=== PATIENT | male | born 1990 | race Caucasian/White ===

== ENCOUNTER 2023-11-09 20:22 | Emergency (ER) | payer OTHER ==
[~2023-11-09] VITALS: Ht 190.5 cm; Wt 81.8 kg
[2023-11-09 20:31] VITALS: TEMP 97.9
[2023-11-09] MEDS ORDERED: SODIUM CHLORIDE 0.9% 1,000 ML ONE (20:38)
[2023-11-09] MEDS ORDERED: CeFAZolin 1 GM/DEXTROSE 100 ML IV ONE (20:38)
[2023-11-09] MEDS: CeFAZolin 1 GM/DEXTROSE 50 ML IV ONE ×2 (20:59)
[2023-11-09] MEDS: CeFAZolin SODIUM 1 GM VIAL IM ONE (20:59)
[2023-11-09] MEDS: ONDANSETRON HCL 4 MG/2 ML VIAL IVP ONE (21:02)
[2023-11-09] MEDS: MORPHINE SULFATE 4 MG/ML SYRINGE IVP ONE (21:02)
[2023-11-09] MEDS ORDERED: IOHEXOL 350 MG/ML 100 ML VIAL ONE (21:24)
[2023-11-09] MEDS ORDERED: SODIUM CHLORIDE 0.9% 100 ML ONE (21:24)
[2023-11-09 21:50] LABS: BASOPHILS % (AUTO) 0.4 % (0.0-2.0); EOSINOPHILS % (AUTO) 0.9 % (1.0-6.0); HEMATOCRIT 43.3 % (41-53); HEMOGLOBIN 14.6 g/dL (13.5-17.5); LYMPHOCYTES # (AUTO) 1.9 K/uL (1.0-4.8); LYMPHOCYTES % (AUTO) 25.5 % (22.0-44.0); MEAN CORPUSCULAR HGB CONC 33.7 G/dL (31.0-37.0); MEAN CORPUSCULAR VOLUME 95 fL (80-100); MONOCYTES # (AUTO) 0.5 K/uL (0.1-1.0); NEUTROPHILS # (AUTO) 4.9 K/uL (1.8-7.7); NEUTROPHILS % (AUTO) 66.2 % (40.0-70.0); PLATELET COUNT (AUTO) 329 K/uL (150-450); RED BLOOD CELL COUNT(AUTO) 4.57 MIL/uL (4.50-5.90); RED CELL DISTRIBUTION WIDTH 13.7 % (11.5-14.5); WHITE BLOOD COUNT (AUTO) 7.4 K/uL (4.5-11.0)
[2023-11-09 21:56] LABS: ANION GAP 11 mmol/L (8-16); CALCIUM, TOTAL 8.4 mg/dL (8.8-10.5); CARBON DIOXIDE 28 mmol/L (22-29); CHLORIDE 102 mmol/L (98-107); CREATININE 0.99 mg/dL (0.60-1.30); GLOMERULAR FILTR. RATE CALC > 60 mL/min (>60); GLUCOSE,RANDOM 87 mg/dL (70-110); POTASSIUM 3.5 mmol/L (3.5-5.1); SODIUM SERUM 141 mmol/L (136-145); UREA NITROGEN, BLOOD 11 mg/dL (7-18)
[2023-11-09 22:00] LABS: PROTHROMBIN TIME 10.5 SEC (9.4-11.6)
[2023-11-09 22:02] LABS: ALANINE AMINOTRANSFERASE 34 U/L (12-78); ALBUMIN 3.4 g/dL (3.4-5.0); ALKALINE PHOSPHATASE 71 U/L (46-116); ASPARTATE AMINOTRANSFERASE 35 U/L (15-37); BILIRUBIN,TOTAL 0.4 mg/dL (0.1-1.0); TOTAL PROTEIN, SERUM 7.3 g/dL (6.4-8.2)
[2023-11-09 22:03] LABS: ALCOHOL, BLOOD (SERUM) 177 mg/dL (0-10)
[2023-11-09 23:05] VITALS: BP 134/76; PULSE 77; RESP 16
[2023-11-09] MEDS: SODIUM CHLORIDE 0.9% 250 ML IRRIG SOLUTION BOTTLE IRRIG ONE (23:30)
[2023-11-09] MEDS ORDERED: CEPH-558 PO (23:57)
[2023-11-09] MEDS ORDERED: HYDR-4723 PO (23:57)
[2023-11-10] MEDS: HYDROCODONE/ACETAMINOPHEN 5-325 MG TABLET PO ONE (00:20)
== END 2023-11-10 01:38 | disposition home or self-care (01) ==
LOC: EMS 20:22
DX: S81.831A Puncture wound without foreign body, right lower leg, initial encounter (principal); Z91.040 Latex allergy status; W34.09XA Accidental discharge from other specified firearms, initial encounter; Y93.89 Activity, other specified; Y92.89 Other specified places as the place of occurrence of the external cause; Y99.8 Other external cause status
CPT/HCPCS: 99291; 96365; 73701; 29515; 96375; 80053; 85025; 85610; 85730; 86850; 86900; 86901; 36415; 73590; 73610; 93005; G0480; J0690; J2270; J2405; Q9967; J7030; J7050